=== PATIENT | male | born 1965 | race Caucasian/White ===

== ENCOUNTER → 2022-04-09 01:15 | Outpatient (CLI) | payer MEDICAID, SELFPAY ==
--- NOTE | 2022-04-09 08:00 | DI.US_ITS ---
Exam(s) US ABDOMEN LIMITED EXAM: US ABDOMEN LIMITED CLINICAL HISTORY: evaluate cholecysititis,RUQ ABD PAIN, R10.11 TECHNIQUE: Ultrasound abdomen performed using standard protocol. COMPARISON: No exams were available for comparison FINDINGS: There is no ascites evident. LIVER: Liver is hyperechoic indicating steatosis. There are no discrete focal hepatic lesions eviden t on these images. GALLBLADDER/BILIARY: There are no gallstones. No gallbladder wall edema nor pericholecystic fluid. The common hepatic duct isnot dilated, measuring 3-4mm at the level of avani hepatis. PANCREAS: There is no evidence of pancreatic mass nor dilatation of the pancreatic duct. RIGHT KIDNEY:No evidence of solid mass, calculus, nor hydronephrosis. No cortical cysts evident. ABDOMINAL AORTA AND IVC: Visualized portions exhibit normal caliber. IMPRESSION: 1. No evidence of cholelithiasis nor dilatation of the biliary tree. 2. Hepatic steatosis. Correlation appropriate hepatic blood work recommended. 3. No other significant right upper quadrant ultrasound findings and there is no ascites. DATA REPOSITORY:
== END ==
PROVIDERS: Visit Provider Nurse Practitioner Family
DX: K81.9 Cholecystitis, unspecified (principal); K76.0 Fatty (change of) liver, not elsewhere classified
CPT/HCPCS: 36415; 80053; 83690; 76705; 82150; 85025

== ENCOUNTER 2022-10-06 23:58 | Outpatient (REF) | payer MEDICAID, SELFPAY ==
[2022-10-07 01:56] LABS: Calculated LDL 144 mg/dL (<100); Cholesterol 216 mg/dL (<200); Glucose 94 mg/dL (74-106); HDL Cholesterol 47 mg/dL (40-60); Triglyceride 128 mg/dL (<150)
[2022-10-07 20:08] LABS: PSA, Screening 1.3 ng/mL (<=3.5)
== END 2022-10-06 23:59 | disposition home or self-care (01) ==
LOC: NCHCN 23:58
PROVIDERS: Visit Provider Nurse Practitioner Family
DX: E78.5 Hyperlipidemia, unspecified (principal); Z00.00 Encounter for general adult medical examination without abnormal findings
CPT/HCPCS: 80061; 82947; 84153

== ENCOUNTER 2022-10-13 13:54 | Outpatient (REF) | payer MEDICAID, SELFPAY ==
[2022-10-16 13:48] LABS: Helicobacter pylori Ag, Feces Negative (Negative)
== END 2022-10-13 13:55 | disposition home or self-care (01) ==
LOC: NCHCN 13:54
PROVIDERS: Visit Provider Nurse Practitioner Family
DX: R10.9 Unspecified abdominal pain (principal); R19.5 Other fecal abnormalities
CPT/HCPCS: 87338

== ENCOUNTER 2024-04-27 01:58 | Outpatient (CLI) | payer MEDICAID, SELFPAY ==
[2024-04-27 12:26] LABS: HCT 41.1 % (40.0-50.0); HGB 14.9 g/dL (13.5-17.5); MCH 30.7 pg (27.0-33.0); MCHC 36.3 % (32.0-36.0); MCV 85 fL (80-95); MPV 9.5 fL (8.0-11.0); Platelet Count 274 10^3/uL (130-400); RBC 4.85 10^6/uL (4.36-5.78); RDW-SD 40.1 fL; WBC 6.81 10^3/uL (4.4-10.8)
[2024-04-27 13:53] LABS: ALT 35 U/L (16-63); AST 19 U/L (15-37); Alkaline Phosphatase 71 U/L (46-116); Anion Gap 9.5 mmol/L (3-11); BUN 24 mg/dL (7-18); Bilirubin, Total 0.53 mg/dL (0.2-1.0); CO2 27.5 mmol/L (21.0-32.0); Calcium 8.9 mg/dL (8.5-10.1); Chloride 106 mmol/L (98-107); Estimated GFR 85.63 (mL/min/1.73m2); Glucose 119 mg/dL (74-106); Sodium 143 mmol/L (136-145); Total Protein 7.2 g/dL (6.4-8.2)
[2024-04-28 10:48] LABS: IgA 266 mg/dL (85-499)
[2024-05-02 16:21] LABS: 1,25-Dihydroxyvitamin D 25 pg/mL (18-64)
== END 2024-04-27 01:59 | disposition home or self-care (01) ==
PROVIDERS: Visit Provider Internal Medicine Gastroenterology
DX: K52.9 Noninfective gastroenteritis and colitis, unspecified (principal)
CPT/HCPCS: 36415; 80053; 82784; 85027; 86364; 82652